=== PATIENT | female | born 1975 | race Caucasian/White ===

== ENCOUNTER → 2017-12-02 15:49 | Outpatient (CLI) | payer BC | END | disposition home or self-care (01) | LOC: D.MAMMO 15:30 | DX: Z12.31 Encounter for screening mammogram for malignant neoplasm of breast (principal) ==

== ENCOUNTER 2018-06-21 09:36 | Emergency (ER) | payer BC ==
[~2018-06-21] VITALS: Ht 162.6 cm; Wt 97.7 kg
[2018-06-21 09:46] VITALS: Ht 162.6 cm; Wt 97.7 kg
[2018-06-21] MEDS ORDERED: ALEVE PM (09:48)
[2018-06-21 10:07] LABS: BASOPHILS 0.3 % (0-2); EOSINOPHILS 3.9 % (0-7); HEMATOCRIT 36.9 % (36.0-48.0); HEMOGLOBIN 12.1 g/dL (12-16); IMMATURE GRANULOCYTES 0.3 % (0-5); LYMPHOCYTES 36.1 % (15-50); MCH 25.9 pg (26.0-34.0); MCHC 32.8 g/dL (31.0-37.0); MEAN PLATELET VOLUME 9.2 fL (7.4-10.4); MONOCYTES 7.7 % (2-11); NEUTROPHILS 51.7 % (40-80); PLATELET COUNT 338 10x3/uL (130-400); RBC 4.67 10x6/uL (4.00-5.40); RDW 16.1 % (11.5-14.5); WBC 6.8 10x3/uL (4.8-10.8)
[2018-06-21 10:21] LABS: ALBUMIN 3.5 g/dL (3.4-5.0); BILIRUBIN - TOTAL 0.31 mg/dL (0.2-1.3); CALCIUM 8.9 mg/dL (8.5-10.1); CARBON DIOXIDE 27.3 mmol/L (21.0-32.0); CREATININE - SERUM 0.9 mg/dL (0.6-1.3); POTASSIUM - SERUM 4.3 mmol/L (3.5-5.1); PROTEIN - SERUM 7.8 g/dL (6.4-8.2)
[2018-06-21 10:22] LABS: HCG SERUM NEGATIVE (NEGATIVE)
[2018-06-21] MEDS ORDERED: ACETAMINOPHEN500 M1 PO (11:35)
[2018-06-21] MEDS ORDERED: CYCLOBENZAPRINE10 MG PO (11:35)
[2018-06-21] MEDS ORDERED: IBUPROFEN800 MG PO (11:35)
[2018-06-21 11:57] VITALS: BP 124/83
== END 2018-06-21 11:58 | disposition home or self-care (01) ==
LOC: D.ER 09:36
PROVIDERS: Family Medicine
DX: S30.0XXA Contusion of lower back and pelvis, initial encounter (principal); W18.30XA Fall on same level, unspecified, initial encounter; Y93.89 Activity, other specified; Y92.238 Other place in hospital as the place of occurrence of the external cause

== ENCOUNTER → 2019-02-13 13:18 | Outpatient (CLI) | payer BC ==
[2018-06-21 09:46] VITALS: BMI 37.0
[~2019-02-13 13:18] MED LIST: ACETAMINOPHEN500 M1 PO; ALEVE PM; CYCLOBENZAPRINE10 MG PO; IBUPROFEN800 MG PO
== END | disposition home or self-care (01) ==
LOC: D.MRI 13:18
PROVIDERS: ATTEND Family Medicine
DX: M54.30 Sciatica, unspecified side (principal)

== ENCOUNTER 2020-10-22 20:11 | Outpatient (CLI) | payer BC ==
[2018-06-21 09:46] VITALS: BMI 37.0
== END 2020-10-22 23:59 | disposition home or self-care (01) ==
LOC: D.MAMMO 20:11
PROVIDERS: ATTEND Family Medicine
DX: Z12.31 Encounter for screening mammogram for malignant neoplasm of breast (principal)